=== PATIENT | male | born 1955 | race Caucasian/White ===

== ENCOUNTER 2023-05-01 09:30 | Inpatient (IN) | payer MEDICARE, BC ==
[2023-05-02 12:32] VITALS: BMI 31.1
[2023-05-02 13:07] LABS: Bilirubin Neg (Negative); Blood, Urine Negative (Negative); Clarity Clear (Clear); Glucose, Urine (Dipstick) Normal (Negative); Ketone, Urine Negative (Negative); Leukocyte Negative (Negative); Nitrite Negative (Negative); Protein, Urine (Dipstick) Negative (Neg-Trace); Urobilinogen Normal mg/dL (Less than 2)
[2023-05-02 13:16] LABS: Bacteria/HPF None Seen HPF (None Seen); RBC/HPF None Seen HPF (0-3); Squamous Epithelial None Seen HPF (0-3); WBC/HPF None Seen HPF (0-3)
[2023-05-02 13:20] LABS: PTT 27.5 sec (22.0-33.0); Prothrombin Time 10.9 sec (9.5-12.1)
[2023-05-02 13:22] LABS: Hematocrit 47.8 % (38.8-50.0); Hemoglobin 15.8 g/dL (13.5-17.5); Mean Corpuscular HGB CONC 33.1 g/dL (32.0-36.0); Mean Corpuscular Hemoglobin 32.4 pg (27.0-33.0); Mean Platelet Volume 12.5 fl (7.4-10.4); Platelet Count 178 10x3/uL (150-450); RBC Distribution Width 13.3 % (11.5-14.5); Red Blood Cell (RBC) Count 4.88 10x6/uL (4.32-5.72)
[2023-05-02 13:23] LABS: ALT (SGPT) 15 U/L (8-55); AST (SGOT) 19 U/L (5-34); Albumin 4.3 g/dL (3.4-4.8); Alkaline Phosphatase 114 U/L (40-110); Anion Gap 14 mmol/L (10-20); BUN (Urea Nitrogen) 21 mg/dL (8.4-25.7); Bilirubin, Total 0.7 mg/dL (0.2-1.2); Calc. Creatinine Clearance 0 mL/min (70-130); Carbon Dioxide 23 mmol/L (23-31); Chloride 104 mmol/L (98-107); Estimated GFR 88; Globulin 2.4 g/dL (2.4-3.5); Glucose 88 mg/dL (80-115); Potassium 4.2 mmol/L (3.5-5.1); Protein, Total 6.7 g/dL (5.8-8.1); Sodium 137 mmol/L (136-145)
[2023-05-08] MEDS ORDERED: ceFOXitin 1 GM VIAL ONE (06:47)
[2023-05-08] MEDS ORDERED: Sodium Chloride 0.9% 100 ML ONE (06:47)
[2023-05-08] MEDS ORDERED: Fentanyl 250 MCG/5 ML VIAL ONE (06:48)
[2023-05-08] MEDS ORDERED: Midazolam HCl 2 mg/2 ml Vial ONE (06:48)
[2023-05-08] MEDS ORDERED: EPINEPHrine 1 MG/ML AMP ONE (07:29)
[2023-05-08] MEDS ORDERED: Lidocaine 1% (PF) 30 ML VIAL ONE (07:29)
[2023-05-08] MEDS ORDERED: Phenylephrine 10 MG/ML VIAL ONE ×2 (07:42→11:18)
[2023-05-08] MEDS ORDERED: Gentamicin Sulfate 80 MG in Premix Bag 1 BAG IVPB SCH (07:45)
[2023-05-08] MEDS ORDERED: Dexamethasone 20 MG/5 ML VIAL ONE (07:54)
[2023-05-08] MEDS ORDERED: Ondansetron PF 4 MG/2 ML Vial ONE (07:54)
[2023-05-08] MEDS ORDERED: PROPOFOL 200 MG/20 ML VIAL ONE (07:54)
[2023-05-08] MEDS ORDERED: Lidocaine 1% PF 5 ML VIAL ONE (07:54)
[2023-05-08] MEDS ORDERED: NEOSTIGMINE 3 MG/3 ML SYR 3 MG/3 ML SYRINGE ONE (07:54)
[2023-05-08] MEDS ORDERED: Vecuronium 10 MG VIAL ONE (07:54)
[2023-05-08] MEDS ORDERED: Bupivacaine PF 0.5% 30 ML VIAL ONE (09:56)
[2023-05-08] MEDS ORDERED: Albumin 5% 500 ML ONE (12:51)
[2023-05-08] MEDS ORDERED: hydrALAZINE 20 MG/ML VIAL SLOW IVP PRN (13:33)
[2023-05-08] MEDS ORDERED: oxyCODONE 5 MG TAB PO PRN ×2 (13:33)
[2023-05-08] MEDS ORDERED: Mag-Al 1200 mg/1200 mg/30 ML UDCUP PO PRN (13:33)
[2023-05-08] MEDS ORDERED: Sodium Chloride 0.9% 1,000 ML IV SCH (13:33)
[2023-05-08] MEDS ORDERED: Oxybutynin 5 MG TAB PO PRN (13:33)
[2023-05-08] MEDS ORDERED: fentaNYL 50 mcg/mL 1 mL Vial SLOW IVP PRN (13:43)
[2023-05-08] MEDS ORDERED: Oxybutynin 5 MG TAB ONE (13:49)
[2023-05-08 13:56] LABS: #Monocytes 0.4 thou/uL (0.11-0.59); %Basophils 0.1 % (0.0-1.0); %Lymphocytes 9.6 % (21.0-51.0); %Monocytes 2.5 % (0.0-10.0); %Neutrophils 87.4 % (42.0-75.0); Hemoglobin 13.7 g/dL (14.0-18.0); Mean Corpuscular HGB CONC 32.6 g/dL (32.0-36.0); Mean Corpuscular Hemoglobin 32.7 pg (27.0-31.0); Mean Corpuscular Volume 100.2 fl (78.0-98.0); Mean Platelet Volume 12.2 fL (7.4-10.4); Platelet Count 158 10x3/uL (130-400); RBC Distribution Width 13.7 % (11.5-14.5); Red Blood Cell (RBC) Count 4.19 mill/uL (4.70-6.10); White Blood Cell (WBC) Count 13.8 10x3/uL (4.8-10.8)
[2023-05-08 14:16] LABS: Anion Gap 13 mmol/L (10-20); BUN (Urea Nitrogen) 15 mg/dL (8.4-25.7); Calc. Creatinine Clearance 105 mL/min (70-130); Calcium 8.5 mg/dL (7.8-10.44); Carbon Dioxide 22 mmol/L (23-31); Chloride 108 mmol/L (98-107); Estimated GFR 93; Glucose 155 mg/dL (80-115); Potassium 3.7 mmol/L (3.5-5.1); Sodium 139 mmol/L (136-145)
[2023-05-08] MEDS: Acetaminophen 500 MG TAB PO SCH ×2 (17:45→20:07)
[2023-05-08] MEDS: traMADol HCl 50 MG TAB PO SCH ×2 (17:46→20:08)
[2023-05-08] MEDS: cefOXitin Sodium 1 GM in Sodium Chloride 0.9% 100 ML IVPB SCH ×2 (17:46→21:16)
[2023-05-08] MEDS: Ketorolac Tromethamine 30 MG/ML VIAL IVP SCH ×2 (17:46→21:16)
[2023-05-08] MEDS: Famotidine 20 MG TAB PO SCH (20:08)
[2023-05-08] MEDS: Docusate 100 MG CAP PO SCH (20:08)
[2023-05-09] MEDS: traMADol HCl 50 MG TAB PO SCH ×2 (01:34→09:23)
[2023-05-09] MEDS: Acetaminophen 500 MG TAB PO SCH ×2 (01:34→09:22)
[2023-05-09] MEDS: Ketorolac Tromethamine 30 MG/ML VIAL IVP SCH (05:42)
[2023-05-09] MEDS: cefOXitin Sodium 1 GM in Sodium Chloride 0.9% 100 ML IVPB SCH (05:42)
[2023-05-09 06:20] LABS: #Monocytes 0.9 thou/uL (0.11-0.59); #Neutrophils 8.5 thou/uL (1.40-6.50); %Basophils 0.2 % (0.0-1.0); %Eosinophils 0.1 % (0.0-10.0); %Lymphocytes 12.8 % (21.0-51.0); %Monocytes 8.2 % (0.0-10.0); %Neutrophils 78.4 % (42.0-75.0); Hemoglobin 12.1 g/dL (14.0-18.0); Mean Corpuscular HGB CONC 32.7 g/dL (32.0-36.0); Mean Corpuscular Hemoglobin 32.7 pg (27.0-31.0); Mean Platelet Volume 12.1 fL (7.4-10.4); Platelet Count 133 10x3/uL (130-400); RBC Distribution Width 13.7 % (11.5-14.5); White Blood Cell (WBC) Count 10.8 10x3/uL (4.8-10.8)
[2023-05-09 06:40] LABS: Anion Gap 9 mmol/L (10-20); BUN (Urea Nitrogen) 17 mg/dL (8.4-25.7); Calc. Creatinine Clearance 104 mL/min (70-130); Calcium 8.3 mg/dL (7.8-10.44); Carbon Dioxide 25 mmol/L (23-31); Chloride 108 mmol/L (98-107); Estimated GFR 93; Glucose 114 mg/dL (80-115); Potassium 3.6 mmol/L (3.5-5.1); Sodium 138 mmol/L (136-145)
[2023-05-09] MEDS ORDERED: Hydrochlorothiazide 25 MG TAB PO SCH (09:00)
[2023-05-09] MEDS ORDERED: Lisinopril 20 MG TAB PO SCH (09:00)
[2023-05-09] MEDS ORDERED: Atorvastatin Calcium 40 MG TAB PO SCH (09:00)
[2023-05-09] MEDS: Docusate 100 MG CAP PO SCH (09:23)
[2023-05-09] MEDS: Famotidine 20 MG TAB PO SCH (09:23)
[2023-05-09 11:45] VITALS: BP 119/59; TEMP 98.2
== END 2023-05-09 13:30 | disposition home or self-care (01) | DRG 708 ==
LOC: SURG A 05-08 05:53
PROVIDERS: ADMIT Urology; ATTEND Urology
PROC: 0VT04ZZ Resection of Prostate, Percutaneous Endoscopic Approach (ICD-10-PCS; principal; 2023-05-08)
PROC: 8E0W4CZ Robotic Assisted Procedure of Trunk Region, Percutaneous Endoscopic Approach (ICD-10-PCS; 2023-05-08)
DX: C61 Malignant neoplasm of prostate (principal); E78.00 Pure hypercholesterolemia, unspecified; I10 Essential (primary) hypertension; F10.90 Alcohol use, unspecified, uncomplicated; E66.9 Obesity, unspecified; Z68.31 Body mass index [BMI] 31.0-31.9, adult; Z79.899 Other long term (current) drug therapy; Z87.891 Personal history of nicotine dependence; Z80.9 Family history of malignant neoplasm, unspecified
CPT/HCPCS: 36415; 80048; 80053; 81001; 85025; 85027; 85610; 85730; 86850; 86900; 86901; 87086; 88309; C1713; C1776; C1889; C9250; J0171; J0694; J1100; J1642; J1885; J2001; J2250; J2370; J2405; J2704; J3010; J3490; J7050; P9045; S0020

== ENCOUNTER 2023-05-02 11:50 | Outpatient (CLI) | payer MEDICARE, BC ==
[2023-05-02 13:07] LABS: Bilirubin Neg (Negative); Blood, Urine Negative (Negative); Clarity Clear (Clear); Glucose, Urine (Dipstick) Normal (Negative); Ketone, Urine Negative (Negative); Leukocyte Negative (Negative); Nitrite Negative (Negative); Protein, Urine (Dipstick) Negative (Neg-Trace); Urobilinogen Normal mg/dL (Less than 2)
[2023-05-02 13:16] LABS: Bacteria/HPF None Seen HPF (None Seen); RBC/HPF None Seen HPF (0-3); Squamous Epithelial None Seen HPF (0-3); WBC/HPF None Seen HPF (0-3)
[2023-05-02 13:20] LABS: PTT 27.5 sec (22.0-33.0); Prothrombin Time 10.9 sec (9.5-12.1)
[2023-05-02 13:22] LABS: Hematocrit 47.8 % (38.8-50.0); Hemoglobin 15.8 g/dL (13.5-17.5); Mean Corpuscular HGB CONC 33.1 g/dL (32.0-36.0); Mean Corpuscular Hemoglobin 32.4 pg (27.0-33.0); Mean Platelet Volume 12.5 fl (7.4-10.4); Platelet Count 178 10x3/uL (150-450); RBC Distribution Width 13.3 % (11.5-14.5); Red Blood Cell (RBC) Count 4.88 10x6/uL (4.32-5.72)
[2023-05-02 13:23] LABS: ALT (SGPT) 15 U/L (8-55); AST (SGOT) 19 U/L (5-34); Albumin 4.3 g/dL (3.4-4.8); Alkaline Phosphatase 114 U/L (40-110); Anion Gap 14 mmol/L (10-20); BUN (Urea Nitrogen) 21 mg/dL (8.4-25.7); Bilirubin, Total 0.7 mg/dL (0.2-1.2); Calc. Creatinine Clearance 0 mL/min (70-130); Carbon Dioxide 23 mmol/L (23-31); Chloride 104 mmol/L (98-107); Estimated GFR 88; Globulin 2.4 g/dL (2.4-3.5); Glucose 88 mg/dL (80-115); Potassium 4.2 mmol/L (3.5-5.1); Protein, Total 6.7 g/dL (5.8-8.1); Sodium 137 mmol/L (136-145)
== END 2023-05-02 11:51 | disposition home or self-care (01) ==
LOC: LABBT 11:50
PROVIDERS: ATTEND Urology
DX: Z01.818 Encounter for other preprocedural examination (principal); C61 Malignant neoplasm of prostate; E66.9 Obesity, unspecified
CPT/HCPCS: 80053; 81001; 85027; 85610; 85730; 86850; 86900; 86901; 87086

== ENCOUNTER 2023-06-11 12:41 | Outpatient (CLI) | payer MEDICARE, BC ==
[2023-06-11] MEDS ORDERED: Iopamidol 370 76% 100 ML VIAL ONE (15:55)
== END 2023-06-11 12:42 | disposition home or self-care (01) ==
LOC: BICCT 12:41
PROVIDERS: ATTEND Urology
DX: C61 Malignant neoplasm of prostate (principal); I89.8 Other specified noninfective disorders of lymphatic vessels and lymph nodes; I87.1 Compression of vein; K57.30 Diverticulosis of large intestine without perforation or abscess without bleeding; R93.6 Abnormal findings on diagnostic imaging of limbs
CPT/HCPCS: 36415; 74177; 80048; 84153; 85025; 93970; Q9967

== ENCOUNTER → 2023-06-16 | Day surgery (SDC) | payer MEDICARE, BC | LOC: CT 09:02 | PROVIDERS: ATTEND Urology | DX: I89.8 Other specified noninfective disorders of lymphatic vessels and lymph nodes (principal); K57.30 Diverticulosis of large intestine without perforation or abscess without bleeding | CPT/HCPCS: 76380 ==